=== PATIENT | male | born 1960 | race American Indian/Alaskan Native ===

== ENCOUNTER 2017-02-08 12:09 | Inpatient (IN) | payer MEDICAID ==
[2017-02-08 13:43] LABS: BASO % 0.4 % (0.0-2.0); EOS # 0.5 K/uL (0.0-0.7); EOS % 6.8 % (0.0-4.0); HEMATOCRIT 40.2 % (35.0-51.0); LYMPH % 24.6 % (20.0-40.0); MEAN CELL VOLUME 94.4 fL (80.0-94.0); MEAN CORPUSCULAR HEMOGLOBIN 30.8 pg (27.0-31.0); MEAN CORPUSCULAR HGB CONC 32.6 g/dL (33.0-37.0); MEAN PLATELET VOLUME 7.3 fL (7.2-11.7); MONO # 0.5 K/uL (0.0-0.8); MONO % 5.8 % (0.0-10.0); RED CELL DISTRIBUTION WIDTH 13.4 % (11.5-14.5); WHITE BLOOD COUNT 8.1 K/uL (4.8-10.8)
[2017-02-08 13:47] LABS: RBC URINE < 1 /hpf (0-3); URINE BILIRUBIN NEGATIVE (NEGATIVE); URINE BLOOD NEGATIVE (NEGATIVE); URINE COLOR Yellow (YELLOW); URINE GLUCOSE (UA) NORMAL (Normal); URINE KETONE NEGATIVE (NEGATIVE); URINE LEUKOCYTE ESTERASE NEG Leu/uL (Negative); URINE PROTEIN NEGATIVE (NEGATIVE); URINE UROBILINOGEN NORMAL mg/dL (0.2-1.0); WBC URINE 1 /hpf (0-5)
[2017-02-08 14:02] LABS: CHLORIDE 100 mmol/L (98-107); SODIUM 137 mmol/L (132-148)
[2017-02-08 14:03] LABS: POTASSIUM 4.6 mmol/L (3.6-5.2)
[2017-02-08 14:05] LABS: ALB/GLOB RATIO 1.4 (1.0-2.1); ALKALINE PHOSPHATASE 72 U/L (38-126); ALT/SGPT 21 U/L (21-72); AST/SGOT 20 U/L (17-59); BILIRUBIN,TOTAL < 0.1 mg/dL (0.2-1.3); BLOOD UREA NITROGEN 12 mg/dL (9-20); CALCIUM 8.9 mg/dl (8.6-10.4); CARBON DIOXIDE 26 mmol/L (22-30); GFR AFRICAN-AMERICAN > 60; GLUCOSE,RANDOM 121 mg/dL (75-110); TOTAL PROTEIN 6.2 g/dL (6.3-8.3)
[2017-02-08 14:06] LABS: ALCOHOL SERUM < 10 mg/dl (0-10)
--- NOTE | 2017-02-08 14:22 | C.PDOC ---
History Of Present Illness 56-year-old male, presents to the emergency department requesting detox from heroin. Patient states he is not using IV. Patients last use was yesterday. Denies any SI/HI. No other complaints at this time. Time Seen by Provider: 02/08/17 13:12 Chief Complaint (Nursing): Substance Abuse History Per: Patient History/Exam Limitations: no limitations Onset/Duration Of Symptoms: Days Current Symptoms Are (Timing): Still Present Past Medical History Reviewed: Historical Data, Nursing Documentation, Vital Signs Vital Signs: Last Vital Signs Temp 98 F 02/08/17 16:37 Pulse 62 02/08/17 16:37 Resp 18 02/08/17 16:37 BP 121/73 02/08/17 16:37 Pulse Ox 100 02/08/17 17:28 - Medical History PMH: Back Problems Denies: Diabetes, Hepatitis, HIV, HTN, Seizures, Sexually Transmitted Disease - [facility] Procedures DETOXIFICATION SERVICES FOR SUBSTANCE ABUSE TREATMENT (02/08/16) DRUG DETOXIFICATION (11/09/14) Family History: States: Unknown Family Hx - Social History Hx Tobacco Use: Yes Hx Alcohol Use: Yes Hx Substance Use: Yes (heroin) - Immunization History Hx Tetanus Toxoid Vaccination: No Hx Influenza Vaccination: No Hx Pneumococcal Vaccination: No Review Of Systems Except As Marked, All Systems Reviewed And Found Negative. Constitutional: Negative for: Fever, Chills Cardiovascular: Negative for: Chest Pain, Palpitations Respiratory: Negative for: Shortness of Breath Skin: Negative for: Rash Neurological: Negative for: Weakness, Numbness Psych: Negative for: Anxiety, Depression, Suicidal ideation Physical Exam - Physical Exam Appears: Non-toxic, No Acute Distress Skin: Warm, Dry, No Rash Head: Atraumatic, Normacephalic Eye(s): bilateral: Normal Inspection, EOMI Nose: Normal Oral Mucosa: Moist Lips: Normal Appearing Neck: Normal ROM Chest: Symmetrical Respiratory: No Accessory Muscle Use Gastrointestinal/Abdominal: Soft, No Tenderness Extremity: Normal ROM Neurological/Psych: Oriented x3 ED Course And Treatment - Laboratory Results Result Diagrams: 02/08/17 13:40 02/08/17 13:40 O2 Sat by Pulse Oximetry: 100 Progress Note: Case discussed w/ school social worker, who evaluated patient and states he will be admitted to Dr Navarro service for opiate dependance. Disposition - Disposition Disposition: HOSPITALIZED Disposition Time: 16:00 Condition: STABLE - Clinical Impression Clinical Impression: Opioid dependence - Scribe Statement The provider has reviewed the documentation as recorded by the Scribe Ladan Erickson All medical record entries made by the Radhaibe were at my direction and personally dictated by me. I have reviewed the chart and agree that the record accurately reflects my personal performance of the history, physical exam, medical decision making, and the department course for this patient. I have also personally directed, reviewed, and agree with the discharge instructions and disposition.
[2017-02-09] MEDS ORDERED: Buprenorphine Hydrochloride 2 mg SL ONE ×3 (07:00→08:25)
--- NOTE | 2017-02-09 14:08 | PCM.PSYCH ---
Initial Psychiatric Evaluation - Initial Psychiatric Evaluation Type of Admission: Voluntary Legal Status: Capacity Chief Complaint (in patient's own words): Heroin detox History of Present Illness and Precipitating Events: Pt. is a 56 y/o AA M, domiciled and unemployed on disability, w/ PMHx of opiate abuse disorder. Pt. reports that he predominantly uses heroin, although, he admits to also abusing xanax, and using crack cocaine. Pt. states that his father was an alcoholic; Pt. alludes to psychiatric hx on his mothers side as well. Pt. was last admitted admitted a year ago for detox. Upon discharge, Pt. was referred to [facility], but there was a waitlist. Pt. states that he stayed clean for two months, but relapsed before space opened up for him at [facility]. Pt. is now concerned that his current living situation would be a difficult environment in which to remain sober due to the ubiquity of drugs in his apartment complex. Pt. is interested in seeking treatment in a long-term rehab facility upon discharge, and he is also interested in looking for sober- living homes. Current Medications: Active Medications Generic Name Dose Route Start Last Admin Trade Name Freq PRN Reason Stop Dose Admin Al Hydrox/Mg Hydrox/Simethicone 30 ml 02/08/17 15:35 Maalox 30 Ml PO TID PRN Indigestion / Heartburn Buprenorphine HCl 8 mg 02/10/17 10:00 Subutex SL 02/14/17 09:59 .TAPER MONTY Taper Clonidine HCl 0.1 mg 02/08/17 15:35 Catapres PO Q8 PRN COWS Score More or Equal to 5 Gabapentin 300 mg 02/08/17 18:00 02/09/17 13:18 Neurontin PO 300 mg TID MONTY Administration Hydroxyzine HCl 50 mg 02/08/17 15:35 02/08/17 17:38 Atarax PO 50 mg Q6H PRN Administration Anxiety Ibuprofen 600 mg 02/08/17 15:35 Motrin Tab PO Q6H PRN Pain, moderate (4-7) Loperamide HCl 2 mg 02/08/17 15:35 Imodium PO Q8 PRN Diarrhea Nicotine 1 patch 02/09/17 10:00 02/09/17 09:15 Nicoderm Cq TD 1 patch DAILY MONTY Administration Ondansetron HCl 4 mg 02/08/17 15:35 Zofran Tab PO Q8 PRN Nausea/Vomiting Trazodone HCl 100 mg 02/08/17 22:00 Desyrel PO HS PRN Insomnia Past Psychiatric History - Past Psychiatric History Previous Treatment History: Inpatient Prior Psychiatric Treatment: Heroin detox At [facility]: [facility] Date: 02/13/16 Duration: 7 days Pertinent Medical Hx (Current Medical&Sleep Prob, Allergies): Allergies Allergy/AdvReac Type Severity Reaction Status Date / Time FISH Allergy Intermediate Verified 02/08/17 12:35 nut - unspecified [nut] Allergy Intermediate Verified 02/08/17 12:35 Gabapentin [Neurontin] 300 mg PO TID #90 cap 02/13/16 hydrOXYzine HCl [Atarax] 25 mg PO BID PRN #60 tab 02/13/16 traZODone [Desyrel] 100 mg PO HS #30 tab 02/13/16 Review of Systems - Psychiatric Psychiatric: absent: Auditory Hallucinations, Visual Hallucinations Mental Status Examination - Personal Presentation Personal Presentation: Looks stated age - Affect Affect: Constricted - Motor Activity Motor Activity: Calm - Reliability in Providing Information Reliability in Providing Information: Good - Speech Speech: Organized, Relevant - Mood Mood: Depressed - Formal Thought Process Formal Thought Process: No Impairment - Obsessions/Compulsions Obsessions: No Compulsions: No - Cognitive Functions Orientation: Person, Place, Situation Attention/Concentration: Attentive Judgement: Intact, as evidence by: Insight regarding need for hospitalization Memory: Recent intact, as evidence by: Ability to recall events of the day, Remote intact, as evidenced by: Abilit to recall sig. life events DSM 5 DX - DSM 5 DSM 5 Diagnosis: Opioid withdrawal Opioid use disorder - Recommended/Plan of Treatment Treatment Recommendations and Plan of Treatment: Opiod withdrawal -subutex detox -prn meds Opioid use disorder -[place] for abstinence -Individual therapy, group therapy -Supportive therapy
[2017-02-10] MEDS: Buprenorphine Hydrochloride 2 mg SL SCH (09:51)
--- NOTE | 2017-02-10 23:00 | PCM.PYCHPN ---
Psychiatric Progress Note - Psychiatric Progress Note Patient seen today, length of contact: 17 min Patient Chief Complaint: "Sleep was so so" Problems Identified/Issues Discussed: The pt is seen, chart reviewed, case discussed with staff. The pt is compliant with medications and reports no side-effects. Symptoms of withdrawal are improving but needs more time to stabilize. After care discussed, support and psychoeducation given. he will go to [facility]. Medication Change: Yes (detox changes daily) Medical Record Reviewed: Yes Mental Status Examination - Cognitive Function Orientation: Person, Place, Situation, Time Memory: Intact Attention: WNL Concentration: WNL Association: WNL Fund of Knowledge: WNL - Mood Mood: Depressed - Affect Affect: Constricted - Speech Speech: Appropriate - Formal Thought Process Formal Thought Process: No Impairment - Suicidal Ideation Suicidal Ideation: No - Homicidal Ideation Homicidal Ideation: No Goal/Treatment Plan - Goal/Treatment Plan Need for Continued Stay: Discharge may exacerbated symptoms, Severe functional impairment Progress Toward Problem(s) and Goals/Treatment Plan: Opiod withdrawal -subutex detox -prn meds Opioid use disorder -[place] for abstinence -Individual therapy, group therapy -Supportive therapy Estimated Date of D/C: 02/13/17
[2017-02-11] MEDS: Buprenorphine Hydrochloride 2 mg SL SCH (09:44)
[2017-02-11] MEDS: Aluminum Hydroxide/Magnesium Hydroxide Susp (30 mL) PO PRN (21:54)
--- NOTE | 2017-02-11 22:28 | PCM.PYCHPN ---
Psychiatric Progress Note - Psychiatric Progress Note Patient seen today, length of contact: 16 min Patient Chief Complaint: "A little better" Problems Identified/Issues Discussed: The pt is seen, chart reviewed, case discussed with staff. The pt is compliant with medications and reports no side-effects. Symptoms are still improving but needs more time to stabilize. No breakthru sxs reported. Slept better After care discussed, support and psychoeducation given. No chg: [facility] Medication Change: Yes (detox changes daily) Medical Record Reviewed: Yes Mental Status Examination - Cognitive Function Orientation: Person, Place, Situation Memory: Intact Attention: WNL Concentration: WNL Association: WN Fund of Knowledge: WN - Mood Mood: Depressed - Affect Affect: Constricted - Speech Speech: Appropriate - Formal Thought Process Formal Thought Process: No Impairment - Suicidal Ideation Suicidal Ideation: No - Homicidal Ideation Homicidal Ideation: No Goal/Treatment Plan - Goal/Treatment Plan Need for Continued Stay: Discharge may exacerbated symptoms, Severe functional impairment Progress Toward Problem(s) and Goals/Treatment Plan: Opiod withdrawal -subutex detox -prn meds Opioid use disorder -[place] for abstinence -Individual therapy, group therapy -Supportive therapy Estimated Date of D/C: 02/13/17
[2017-02-12] MEDS: Buprenorphine Hydrochloride 2 mg SL SCH (10:05)
--- NOTE | 2017-02-12 14:19 | PCM.PYCHPN ---
Psychiatric Progress Note - Psychiatric Progress Note Patient seen today, length of contact: 15 min Patient Chief Complaint: "OK today" Problems Identified/Issues Discussed: The pt is seen, chart reviewed, case discussed with staff. The pt is compliant with medications and reports no side-effects. Detox is improving without breakthru sxs. No cravings but he will do suboxone at [facility]. Support and psychoeducation given. WA used Medication Change: Yes (detox changes daily) Medical Record Reviewed: Yes Mental Status Examination - Cognitive Function Orientation: Person, Place, Situation Memory: Intact Attention: WNL Concentration: WNL Association: WNL Fund of Knowledge: WNL - Mood Mood: Depressed - Affect Affect: Constricted - Speech Speech: Appropriate - Formal Thought Process Formal Thought Process: No Impairment - Suicidal Ideation Suicidal Ideation: No - Homicidal Ideation Homicidal Ideation: No Goal/Treatment Plan - Goal/Treatment Plan Need for Continued Stay: Discharge may exacerbated symptoms, Severe functional impairment Progress Toward Problem(s) and Goals/Treatment Plan: Opiod withdrawal -subutex detox, ending soon -prn meds Opioid use disorder -[place] for abstinence -Individual therapy, group therapy -Supportive therapy -MAT discussed Estimated Date of D/C: 02/13/17
[2017-02-12] MEDS: Aluminum Hydroxide/Magnesium Hydroxide Susp (30 mL) PO PRN (20:52)
[2017-02-13 05:02] VITALS: RESP 18; TEMP 97.8
--- NOTE | 2017-02-13 08:59 | PCM.PYCHDC ---
Mental Status Examination - Mental Status Examination Orientation: Person, Place, Situation, Time Memory: Intact Mood: Anxious Affect: Constricted Speech: Appropriate Attention: WNL Concentration: WNL Association: WNL Fund of Knowledge: WNL Formal Thought Process: No Impairment Suicidal Ideation: No Current Homicidal Ideation?: No Discharge Summary - Discharge Note Reason for Hospitalization: heroin detox Consultations:: List each consultation separately and include: 1. Reason for request. 2. Findings. 3. Follow-up Summary of Hospital Course include:: 1. Description of specific treatment plan utilized for patients during their course of treatmen. 2. Summarize the time- course for resolution of acute symptoms and/or regressed behaviors. 3. Describe issues identified and worked on during hospitalization. 4. Describe medication utilized. 5. Describe medical problems identified and treated. 6. Reassessment of suicide risk Summary of Hospital Course: The pt is seen, chart reviewed and case discussed On admission: Pt. is a 56 y/o AA M, domiciled and unemployed on disability, w/ PMHx of opiate use disorder. Pt. reports that he predominantly uses heroin, although, he admits to also abusing xanax, and using crack cocaine. Pt. states that his father was an alcoholic; Pt. alludes to psychiatric hx on his mothers side as well. Pt. was last admitted admitted a year ago for detox. Upon discharge, Pt. was referred to [facility], but there was a waitlist. Pt. states that he stayed clean for two months, but relapsed before space opened up for him at [facility]. Pt. is now concerned that his current living situation would be a difficult environment in which to remain sober due to the ubiquity of drugs in his apartment complex. Pt. is interested in seeking treatment in a long-term rehab facility upon discharge, and he is also interested in looking for sober- living homes. Hospital course: The pt was admitted and started on treatment with psychotherapy, support, psychoeducation and medications. NE and CBT used. The pt attended groups and activities, as well as milieu therapy. All the risks and benefits of medications are discussed and the patient understood and agreed. After care discussed with the patient. Agreed to go to [facility] and also do subox. He was cooperative, motivated and pleasant - Final Diagnosis (DSM 5) Condition upon Discharge: STABLE DSM 5: Opioid withdrawal Opioid use d/o - severe Disposition: HOME/ ROUTINE Follow-up Treatment Plan: Attend [facility] on 02/15/17 Consider MAT Continue below medications after discharge. Use relapse prevention skills Return to ER or call 911 if suicidal, homicidal or symptoms relapse. Stay away from stress, alcohol and drugs. Prescriptions/Medication Reconciliation: hydrOXYzine HCl [Atarax] 50 mg PO BID PRN #60 tab PRN Reason: Anxiety traZODone [Desyrel] 100 mg PO HS PRN #30 tab PRN Reason: Insomnia Gabapentin [Neurontin] 300 mg PO TID #90 cap
[2017-02-13 09:01] VITALS: BP 128/83; PULSE 81; O2SAT 96
[2017-02-13] MEDS: Buprenorphine Hydrochloride 2 mg SL SCH (09:28)
== END 2017-02-13 12:15 | disposition home or self-care (01) | DRG 745 ==
LOC: C.ER 12:09 → C.9E 14:57 → C.7D 15:41
PROVIDERS: ADMIT Psychiatry & Neurology Psychiatry; ATTEND Psychiatry & Neurology Psychiatry
PROC: HZ2ZZZZ Detoxification Services for Substance Abuse Treatment (ICD-10-PCS; principal; 2017-02-08)
PROC: GZHZZZZ Group Psychotherapy (ICD-10-PCS; 2017-02-08)
PROC: GZ56ZZZ Individual Psychotherapy, Supportive (ICD-10-PCS; 2017-02-08)
DX: F11.23 Opioid dependence with withdrawal (principal); F19.10 Other psychoactive substance abuse, uncomplicated; Z87.891 Personal history of nicotine dependence; G47.00 Insomnia, unspecified

== ENCOUNTER 2017-10-26 16:02 | Inpatient (IN) | payer MEDICARE, MEDICAID ==
[2017-10-26 16:30] VITALS: BMI 25.1
[2017-10-26 17:53] LABS: BASO % 0.5 % (0.0-2.0); EOS # 0.4 K/uL (0.0-0.7); HEMOGLOBIN 14.1 g/dL (12.0-18.0); LYMPH % 24.3 % (20.0-40.0); MEAN CELL VOLUME 94.5 fL (80.0-94.0); MEAN CORPUSCULAR HEMOGLOBIN 31.4 pg (27.0-31.0); MEAN CORPUSCULAR HGB CONC 33.3 g/dL (33.0-37.0); MEAN PLATELET VOLUME 7.1 fL (7.2-11.7); MONO # 0.7 K/uL (0.0-0.8); MONO % 8.9 % (0.0-10.0); NEUT % 61.3 % (50.0-75.0); NRBC % 0.1 % (0.0-2.0); RBC 4.49 Mil/uL (4.40-5.90); RED CELL DISTRIBUTION WIDTH 14.1 % (11.5-14.5); WHITE BLOOD COUNT 8.1 K/uL (4.8-10.8)
[2017-10-26 18:11] LABS: ALB/GLOB RATIO 1.3 (1.0-2.1); ALT/SGPT 21 U/L (21-72); AST/SGOT 23 U/L (17-59); BLOOD UREA NITROGEN 10 mg/dL (9-20); CALCIUM 8.8 mg/dl (8.6-10.4); GFR AFRICAN-AMERICAN > 60; GFR NON-AFRICAN AMERICAN > 60
--- NOTE | 2017-10-26 18:34 | C.PDOC ---
History Of Present Illness 57 year old male, with no significant PMHx, presents to ED requesting detox from heroin and Xanax. Last use of Xanax and heroin both today. Pt reports snorting 5-6 bags of heroin today. Denies SI, HI, or any active physical complaints at this time. Time Seen by Provider: 10/26/17 18:17 Chief Complaint (Nursing): Substance Abuse History Per: Patient History/Exam Limitations: no limitations Onset/Duration Of Symptoms: Days Current Symptoms Are (Timing): Still Present Suicide/Self Injury Attempted (Context): None Severity: None Pain Scale Rating Of: 0 Associated Symptoms: denies: Suicidal Thoughts, Suicidal Plan Involuntary Hold By: None Recent travel outside of the [place]: No Additional History Per: Patient Past Medical History Reviewed: Historical Data, Nursing Documentation, Vital Signs Vital Signs: Last Vital Signs Temp 99.1 F 10/26/17 16:30 Pulse 87 10/26/17 16:30 Resp 18 10/26/17 16:30 BP 125/74 10/26/17 16:30 Pulse Ox 95 10/26/17 18:39 - Medical History PMH: Back Problems Denies: Diabetes, Hepatitis, HIV, HTN, Seizures, Sexually Transmitted Disease - [facility] Procedures DETOXIFICATION SERVICES FOR SUBSTANCE ABUSE TREATMENT (02/08/17) DRUG DETOXIFICATION (11/09/14) GROUP PSYCHOTHERAPY (02/08/17) INDIVIDUAL PSYCHOTHERAPY, SUPPORTIVE (02/08/17) Family History: States: Stroke - Social History Hx Tobacco Use: Yes Hx Alcohol Use: Yes Hx Substance Use: Yes (heroin) - Immunization History Hx Tetanus Toxoid Vaccination: No Hx Influenza Vaccination: No Hx Pneumococcal Vaccination: No Review Of Systems Except As Marked, All Systems Reviewed And Found Negative. Constitutional: Negative for: Fever, Chills Cardiovascular: Negative for: Chest Pain, Palpitations Respiratory: Negative for: Cough, Shortness of Breath Gastrointestinal: Negative for: Nausea, Vomiting, Abdominal Pain Neurological: Negative for: Headache, Dizziness Psych: Negative for: Suicidal ideation Physical Exam - Physical Exam Appears: Non-toxic, No Acute Distress, Other (calm, cooperative) Skin: Warm, Dry, Other (chronic darkening of b/l lower extremity ) Head: Atraumatic, Normacephalic Eye(s): bilateral: Abnormal Pupil (constricted) Oral Mucosa: Moist Neck: Normal ROM, Supple Chest: Symmetrical Cardiovascular: Rhythm Regular, No Murmur Respiratory: No Accessory Muscle Use, No Rales, No Rhonchi, No Wheezing Gastrointestinal/Abdominal: Soft, No Tenderness Extremity: Normal ROM, No Pedal Edema Neurological/Psych: Oriented x3, Normal Speech ED Course And Treatment - Laboratory Results Result Diagrams: 10/26/17 17:47 10/26/17 17:47 Lab Interpretation: Abnormal (tox + cocaine, opiates, benzo's) O2 Sat by Pulse Oximetry: 95 (RA) Pulse Ox Interpretation: Normal Reevaluation Time: 19:52 Reassessment Condition: Unchanged - Physician Consult Information Outcome Of Conversation: 194: ok to detox Medical Decision Making Medical Decision Making: Blood work, UA ordered and reviewed. polysubstance abuse- prescreened for detox. Disposition Doctor Will See Patient In The: Hospital Counseled Patient/Family Regarding: Studies Performed, Diagnosis - Disposition Disposition: HOSPITALIZED Disposition Time: 19:53 Condition: GOOD Forms: [facility] ([place]) - Clinical Impression Clinical Impression: Polysubstance (including opioids) dependence with physiol dependence - Scribe Statement The provider has reviewed the documentation as recorded by the Scribe Seven [place] All medical record entries made by the Scribe were at my direction and personally dictated by me. I have reviewed the chart and agree that the record accurately reflects my personal performance of the history, physical exam, medical decision making, and the department course for this patient. I have also personally directed, reviewed, and agree with the discharge instructions and disposition.
[2017-10-26 18:37] LABS: SQUAMOUS EPITHIAL 1 /hpf (0-5); URINE BILIRUBIN NEGATIVE (NEGATIVE); URINE BLOOD NEGATIVE (NEGATIVE); URINE CALCIUM OXALATE CRYSTALS RARE /hpf (<OCC); URINE CLARITY Hazy (Clear); URINE COLOR Yellow (YELLOW); URINE GLUCOSE (UA) NORMAL (Normal); URINE LEUKOCYTE ESTERASE NEG Leu/uL (Negative); URINE NITRATE NEGATIVE (NEGATIVE); URINE PROTEIN NEGATIVE (NEGATIVE)
[2017-10-26 18:42] LABS: BARBITURATES, UR NEGATIVE (NEGATIVE); BENZODIAZEPINES, UR POSITIVE (NEGATIVE); OPIATES, UR POSITIVE (NEGATIVE); PHENCYCLIDINE, UR NEGATIVE (NEGATIVE)
--- NOTE | 2017-10-26 20:39 | PCM.BM ---
<Cydney Crabtree - Last Filed: 10/26/17 20:37> Treatment Plan Problems - Problems identified on initial assessmt Potential for benzo withdrawal Date Initiated: 10/26/17 Time Initiated: 20:38 Assessment reference: NA Status: Active Priority: 1 Potential for opiate withdrawal Date Initiated: 10/26/17 Time Initiated: 20:38 Assessment reference: NA Status: Active Priority: 2 Treatment assets and liabiliti Patient Assests: cooperative, ADL independent, negotiates basic needs, cognitively intact Patient Liabilities: substance abuse (Benzo, Opiates) - Milieu Protocol Maintain good personal hygiene: daily Encourage regular showers, daily Remind patient to perform daily oral care, daily Assist patient to perform ADL's Conduct patient checks and document Observation sheet: Q15 minutes Maintain personal safety: every shift Educate patient to report safety concerns to staff, every shift Monitor environment for contraband/sharps Medication safety: Monitor for expected outcome, potential side effects: every shift, Assess barriers to learning: every shift, Assess readiness for medication education: every shift <Yara Short - Last Filed: 10/27/17 13:57> Family Contact Family involvement: Patient does not wish Family/SO involvement - Goals for Treatment Patient goals for treatment: COMPLETE DETOX AND APPLY FOR LONG-TERM REHAB. Discharge/Continuing Care - Education Needs Education Needs: Patient Medication, Patient Diagnosis/Disease Process, Patient Coping Skills, Patient Anger Management skills, Patient Placement options, Patient Community resources - Discharge Discharge Criteria: No longer exhibiting s/s of withdrawal, Reduction of target symptoms Discharge to:: Substance Abuse Rehab - Treatment Team Participation Patient/Family/SO Statement: 10/27/17 13:57 "I WANNA GO TO [employer] [facility]..."
[2017-10-26] MEDS ORDERED: Aluminum Hydroxide/Magnesium Hydroxide Susp (30 mL) PO PRN (21:53)
[2017-10-27] MEDS ORDERED: Benzocaine/Menthol (Cepacol) Lozenge PO PRN (11:31)
--- NOTE | 2017-10-27 14:36 | PCM.PSYCH ---
Initial Psychiatric Evaluation - Initial Psychiatric Evaluation Type of Admission: Voluntary Legal Status: Capacity Chief Complaint (in patient's own words): "I want to stay clean" History of Present Illness and Precipitating Events: This 57-year-old single -[place] male who was admitted to the hospital for the detox of heroin and Xanax. Patient reported he used 5-6 bags of heroine on the daily basis for the last 20 years intranasally patient reported he had 2 detox in the past. Last detox was 2 years ago at the [facility]. Patient stated the longest period of sobriety is only 7 months. Patient stated he wanted to stay clean and sober and a one to discharge to inpatient rehabilitation after the discharge. Patient reported withdrawal symptoms of heroine including nasal condition Morrison eyes hot and cold sweats nausea and stomach cramps muscle aches etc. Patient reported he is taking Xanax 2 mg tablet 3 times a day he started buying and taking the tablet one year ago last use was yesterday patient reported some withdrawal symptoms from the benzos. CAGE questionnaire was positive. Patient reported he is using cocaine on and off for the last 20 years. Last use was yesterday. Patient denied any history of incarceration probation parole, DUI and DWI. Patient reported he is smoking half pack of cigarettes on the daily basis. He reported craving and asked the nicotine patch. Patient denied depressive manic and anxiety symptoms. Additionally he denied auditory visual hallucination including the perceptual disturbances. Past medical history: Denied Family history patient stated both parents were alcoholic Current Medications: Active Medications Generic Name Dose Route Start Last Admin Trade Name Freq PRN Reason Stop Dose Admin Al Hydrox/Mg Hydrox/Simethicone 30 ml 10/26/17 21:53 10/26/17 22:04 Maalox 30 Ml PO 30 ml Q8 PRN Administration Indigestion / Heartburn Benzocaine/Menthol 1 anne 10/27/17 11:31 Cepacol Sore Throat PO QID PRN Sore Throat Clonidine HCl 0.1 mg 10/26/17 21:05 Catapres PO Q8 PRN opiate withdrawal Gabapentin 100 mg 10/27/17 14:00 10/27/17 13:12 Neurontin PO 100 mg TID MONTY Administration Hydroxyzine HCl 25 mg 10/26/17 21:06 10/26/17 21:41 Atarax PO 25 mg Q8 PRN Administration Anxiety Ibuprofen 400 mg 10/27/17 11:33 Motrin Tab PO Q6H PRN Pain, moderate (4-7) Loperamide HCl 2 mg 10/27/17 11:31 Imodium PO Q8 PRN Diarrhea Lorazepam 1 mg 10/26/17 21:30 Ativan PO Q6 PRN benzo withdrawal Lorazepam 2 mg 10/27/17 12:30 Ativan PO 11/01/17 12:29 Q6 MONTY Taper Nicotine 1 patch 10/27/17 13:00 10/27/17 13:29 Nicoderm Cq TD 1 patch DAILY MONTY Administration Ondansetron HCl 4 mg 10/27/17 11:31 Zofran Tab PO Q8 PRN Nausea/Vomiting Trazodone HCl 50 mg 10/26/17 21:06 10/26/17 21:42 Desyrel PO 50 mg HS PRN Administration Insomnia NKDA Past Psychiatric History - Past Psychiatric History Previous Treatment History: Inpatient Prior Psychiatric Treatment: had 2 detox in the past [facility]: [facility] was in [facility] History of Abuse: Denied History of ETOH/Drug Use: Please see HPI History of Family Illness: Both parent were alcoholic Pertinent Medical Hx (Current Medical&Sleep Prob, Allergies): Allergies Allergy/AdvReac Type Severity Reaction Status Date / Time FISH Allergy Intermediate Verified 10/26/17 16:30 nut - unspecified [nut] Allergy Intermediate Verified 10/26/17 16:30 RX: No Known Home Med 10/26/17 Review of Systems - Review of Systems Systems not reviewed;Unavailable: Other (cooperative, anxious) All systems: reviewed and no additional remarkable complaints except (please see HPI) - Constitutional Constitutional: Chills, Sweats, Weakness, Malaise - EENT Eyes: Discharge Ears: UNREMARKABLE Nose/Mouth/Throat: Other (yawning) - Cardiovascular Additional comments: heart racing - Gastrointestinal Gastrointestinal: Diarrhea - Genitourinary Genitourinary: UNREMARKABLE - Reproductive: Male Reproductive:Male: UNREMARKABLE - Musculoskeletal Musculoskeletal: Myalgias - Integumentary Integumentary: UNREMARKABLE - Neurological Neurological: UNREMARKABLE - Psychiatric Psychiatric: As Per HPI Mental Status Examination - Personal Presentation Personal Presentation: Looks stated age Additional comments: Calm and cooperative but appeared anxious - Affect Affect: Constricted - Motor Activity Motor Activity: Calm - Reliability in Providing Information Reliability in Providing Information: Good - Speech Speech: Organized - Formal Thought Process Formal Thought Process: No Impairment - Hallucinations/Delusions Hallucinations: Other (Denied) Delusions: Other (Denied) - Obsessions/Compulsions Obsessions: No Compulsions: No - Cognitive Functions Orientation: Person, Place, Situation, Time Sensorium: Alert Attention/Concentration: Attentive Abstract Thinking: As evidence by abstract perception of proverbs Judgement: Intact, as evidence by: Good judgement, Intact, as evidence by: Insight regarding need for hospitalization Memory: Recent intact, as evidence by: Ability to recall events of the day - Risk Risk: Withdrawal, Falls, Diminished functioning - Strength & Assets Inventory Strength & Assets Inventory: Family support, Cooperative - Limitations Limitations: Other (Chronic substance abuse) DSM 5 DX - DSM 5 DSM 5 Diagnosis: 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, dependence, withdrawal symptoms Hypnotic/sedated use disorder severe dependence, withdrawal symptoms Cocaine use disorder, moderate Tobacco use disorder, moderate - Recommended/Plan of Treatment Treatment Recommendations and Plan of Treatment: Methadone and ativan detox Gabapentin for augmentation As needed meds and vitamins Attend groups and activities [place] for abstinence and CBT for relapse prevention Support and psychoeducation Consider and encourage MAT~ Refer to after care 33 min Projected ELOS: 5 days Prognosis: Good with the medication and completion of detox treatment Discharge Plan and Discharge Criteria: As per floor clinical social work aide protocol - Smoking Cessation Smoking Cessation Initiated: Yes
[2017-10-28] MEDS: Multiple Vitamins Tab PO SCH (14:06)
--- NOTE | 2017-10-28 14:27 | PCM.PYCHPN ---
Psychiatric Progress Note - Psychiatric Progress Note Patient seen today, length of contact: 15 minutes Patient Chief Complaint: "I'm feeling better." Problems Identified/Issues Discussed: The pt is seen and evaluated. chart reviewed, case discussed with staff. Patient reported methadone help him and heroine withdrawal symptoms. The pt is compliant with medications and reports no side-effects. Symptoms are improving but needs more time to stabilize. After care discussed, support and psychoeducation given. Medication Change: Yes (Methadone taper, Ativan taper) Medical Record Reviewed: Yes Consults ordered or reviewed: No Mental Status Examination - Cognitive Function Orientation: Person, Place, Situation, Time Memory: Intact Attention: WNL Concentration: WNL Association: WN Fund of Knowledge: [facility] Decription of patient's judgement and insights: Fair/fair Addtional comments: He is cooperative and answers the questions appropriately - Mood Mood: Neutral - Affect Affect: Constricted - Speech Speech: Appropriate - Formal Thought Process Formal Thought Process: No Impairment Psychotic Thoughts and Behaviors: Denied - Suicidal Ideation Suicidal Ideation: No - Homicidal Ideation Homicidal Ideation: No Plan: No intent or plan, no access to the [facility] Goal/Treatment Plan - Goal/Treatment Plan Need for Continued Stay: Discharge may exacerbated symptoms, Severe functional impairment Progress Toward Problem(s) and Goals/Treatment Plan: Continue Methadone and ativan detox Gabapentin for augmentation As needed meds and vitamins Attend groups and activities [place] for abstinence and CBT for relapse prevention Support and psychoeducation Consider and encourage MAT~ Refer to after care Estimated Date of D/C: 10/31/17 - Smoking Cessation Smoking Cessation Initiated: Yes
[2017-10-29] MEDS: Multiple Vitamins Tab PO SCH (09:08)
--- NOTE | 2017-10-29 13:09 | PCM.PYCHPN ---
Psychiatric Progress Note - Psychiatric Progress Note Patient seen today, length of contact: 15 minutes Patient Chief Complaint: "My withdrawal symptoms are better." Problems Identified/Issues Discussed: The pt is seen and evaluated. chart reviewed, case discussed with staff. Patient reported methadone is helping him in heroine withdrawal symptoms. The pt is compliant with medications and reports no side-effects. Pt stated that he wants to be discharge from the hospital on Wednesday. Symptoms are improving but needs more time to stabilize. After care discussed, support and psychoeducation given. DSM 5 Symptoms Update: Opioid use disorder, severe, dependence, withdrawal symptoms, Hypnotic, sedative/ anxiolytic use disorder, dependence, with withdrawal symptoms. cocaine use d/o Medication Change: Yes (Methadone taper, Ativan taper) Medical Record Reviewed: Yes Mental Status Examination - Cognitive Function Orientation: Person, Place, Situation, Time Memory: Intact Attention: WNL Concentration: WNL Association: WN Fund of Knowledge: [facility] Decription of patient's judgement and insights: Fair/fair Pt is calm and cooperative - Mood Mood: Neutral - Affect Affect: Constricted - Speech Speech: Appropriate - Formal Thought Process Formal Thought Process: No Impairment Psychotic Thoughts and Behaviors: Denied - Suicidal Ideation Suicidal Ideation: No Plan: denied - Homicidal Ideation Homicidal Ideation: No Plan: denied Goal/Treatment Plan - Goal/Treatment Plan Need for Continued Stay: Discharge may exacerbated symptoms, Severe functional impairment Progress Toward Problem(s) and Goals/Treatment Plan: Continue Methadone and ativan detox Gabapentin for augmentation As needed meds and vitamins Attend groups and activities [place] for abstinence and CBT for relapse prevention Support and psychoeducation Consider and encourage MAT~ Refer to after care Estimated Date of D/C: 10/31/17 - Smoking Cessation Smoking Cessation Initiated: Yes
[2017-10-30] MEDS: guaiFENesin 100 mg/5 ml Syrup UD PO PRN (06:54)
[2017-10-30] MEDS: Multiple Vitamins Tab PO SCH (09:14)
[2017-10-30] MEDS ORDERED: Magnesium Hydroxide Susp 30 ml UD PO ONE (16:24)
[2017-10-30] MEDS ORDERED: Magnesium Hydroxide Susp 30 ml UD PO PRN (17:49)
[2017-10-30 21:47] VITALS: RESP 20
[2017-10-31] MEDS: Multiple Vitamins Tab PO SCH (09:43)
[2017-10-31] MEDS: guaiFENesin 100 mg/5 ml Syrup UD PO PRN (10:17)
[2017-10-31 11:38] VITALS: BP 145/85; PULSE 98; TEMP 98.5; O2SAT 98
--- NOTE | 2017-11-01 09:08 | PCM.PYCHPN ---
Psychiatric Progress Note - Psychiatric Progress Note Patient seen today, length of contact: 15 minutes Patient Chief Complaint: [place] AND I LEAVE [facility] Problems Identified/Issues Discussed: POST ACUTE WITHDRAWAL SYNDROME. HAVING A NEW LIFE GEOGRAPHIC CURE Medical Problems: NOTHING ACUTE Diagnostic Results: REVIEWED DSM 5 Symptoms Update: ANXIETY Medication Change: Yes (Methadone taper, Ativan taper) Medical Record Reviewed: Yes Mental Status Examination - Cognitive Function Orientation: Person, Place, Situation, Time Memory: Intact Attention: WNL Concentration: WNL Association: WNL Fund of Knowledge: WNL - Mood Mood: Neutral - Affect Affect: Broad, Constricted - Speech Speech: Appropriate - Formal Thought Process Formal Thought Process: No Impairment - Suicidal Ideation Suicidal Ideation: No - Homicidal Ideation Homicidal Ideation: No Goal/Treatment Plan - Goal/Treatment Plan Need for Continued Stay: Discharge may exacerbated symptoms, Severe functional impairment Progress Toward Problem(s) and Goals/Treatment Plan: OPIOID WITHDRAWAL METHADONE TAPER OPIOID USE DISORDER GROUP [facility] [place] CBT SUPPORTIVE PSYCHOTHERAPY Estimated Date of D/C: 10/31/17 - Smoking Cessation Smoking Cessation Initiated: Yes
== END 2017-10-31 12:00 | disposition home or self-care (01) | DRG 895 ==
LOC: C.ER 16:02 → C.7D 19:53
PROC: HZ2ZZZZ Detoxification Services for Substance Abuse Treatment (ICD-10-PCS; principal; 2017-10-26)
PROC: HZ59ZZZ Individual Psychotherapy for Substance Abuse Treatment, Supportive (ICD-10-PCS; 2017-10-26)
PROC: HZ46ZZZ Group Counseling for Substance Abuse Treatment, Psychoeducation (ICD-10-PCS; 2017-10-26)
DX: F11.23 Opioid dependence with withdrawal (principal); F13.239 Sedative, hypnotic or anxiolytic dependence with withdrawal, unspecified; F14.10 Cocaine abuse, uncomplicated; F17.210 Nicotine dependence, cigarettes, uncomplicated; F41.9 Anxiety disorder, unspecified

== ENCOUNTER 2018-09-21 20:37 | Inpatient (IN) | payer MEDICARE, MEDICAID ==
[2018-09-21 20:37] VITALS: BMI 25.1
[2018-09-21 21:11] LABS: BASO # 0.1 K/uL (0.0-0.2); BASO % 0.6 % (0.0-2.0); EOS # 0.2 K/uL (0.0-0.7); EOS % 1.7 % (0.0-4.0); HEMOGLOBIN 15.7 g/dL (12.0-18.0); LYMPH # 2.3 K/uL (1.0-4.3); LYMPH % 19.2 % (20.0-40.0); MEAN CELL VOLUME 93.4 fL (80.0-94.0); MEAN CORPUSCULAR HEMOGLOBIN 31.8 pg (27.0-31.0); MEAN CORPUSCULAR HGB CONC 34.1 g/dL (33.0-37.0); MEAN PLATELET VOLUME 7.6 fL (7.2-11.7); MONO # 0.8 K/uL (0.0-0.8); MONO % 6.8 % (0.0-10.0); NEUT # 8.8 K/uL (1.8-7.0); NEUT % 71.7 % (50.0-75.0); NRBC % 0.1 % (0.0-2.0); RBC 4.93 Mil/uL (4.40-5.90); RED CELL DISTRIBUTION WIDTH 13.8 % (11.5-14.5); WHITE BLOOD COUNT 12.2 K/uL (4.8-10.8)
[2018-09-21 21:14] LABS: SQUAMOUS EPITHIAL < 1 /hpf (0-5); URINE BACTERIA RARE (<OCC); URINE BILIRUBIN NEGATIVE (NEGATIVE); URINE BLOOD NEGATIVE (NEGATIVE); URINE CALCIUM OXALATE CRYSTALS OCC /hpf (<OCC); URINE CLARITY Clear (Clear); URINE COLOR Amber (YELLOW); URINE GLUCOSE (UA) NORMAL (Normal); URINE LEUKOCYTE ESTERASE NEG Leu/uL (Negative); URINE PROTEIN NEGATIVE (NEGATIVE)
--- NOTE | 2018-09-21 21:16 | C.PDOC ---
History Of Present Illness 58 year old male presents to the ED requesting detox after cocaine, heroin and marijuana use. Patient states his last use was one hour prior to arrival. Patient states he last underwent detox in January, but then relapsed in April. Gina ent denies suicidal/homicidal ideation. Time Seen by Provider: 09/21/18 20:53 Chief Complaint (Nursing): Substance Abuse History Per: Patient History/Exam Limitations: no limitations Onset/Duration Of Symptoms: Hrs Current Symptoms Are (Timing): Still Present Suicide/Self Injury Attempted (Context): None Modifying Factor(s): Marijuana, Cocaine, Other (heroin) Associated Symptoms: denies: Suicidal Thoughts, Suicidal Plan Involuntary Hold By: None Recent travel outside of the [place]: No Additional History Per: Patient Past Medical History Reviewed: Historical Data, Nursing Documentation, Vital Signs Vital Signs: Last Vital Signs Temp 97.8 F 09/21/18 20:42 Pulse 112 H 09/21/18 20:42 Resp 20 09/21/18 20:42 BP 145/83 09/21/18 20:42 Pulse Ox 100 09/21/18 20:42 - Medical History PMH: Back Problems Denies: Diabetes, Hepatitis, HIV, HTN, Seizures, Sexually Transmitted Disease Surgical History: No Surg Hx - [facility] Procedures DETOXIFICATION SERVICES FOR SUBSTANCE ABUSE TREATMENT (10/26/17) DRUG DETOXIFICATION (11/09/14) GROUP BAG SEALER FOR SUBSTANCE ABUSE TREATMENT, PSYCHOEDUCATION (10/26/17) GROUP PSYCHOTHERAPY (02/08/17) INDIV PSYCHOTHERAPY FOR SUBSTANCE ABUSE TREATMENT, SUPPORT (10/26/17) INDIVIDUAL PSYCHOTHERAPY, SUPPORTIVE (02/08/17) Family History: States: Unknown Family Hx, Stroke - Social History Hx Tobacco Use: Yes Hx Alcohol Use: No Hx Substance Use: Yes - Immunization History Hx Tetanus Toxoid Vaccination: No Hx Influenza Vaccination: No Hx Pneumococcal Vaccination: No Review Of Systems Psych: Positive for: Other (cocaine, heroin, marijuana detox ). Negative for: Suicidal ideation Physical Exam - Physical Exam Appears: Non-toxic, No Acute Distress Skin: Normal Color, Warm, Dry Head: Atraumatic, Normacephalic Eye(s): bilateral: Normal Inspection Oral Mucosa: Moist Neck: Supple Chest: Symmetrical, No Deformity, No Tenderness Cardiovascular: Rhythm Regular, No Murmur Respiratory: Normal Breath Sounds, No Rales, No Rhonchi, No Wheezing Extremity: Normal ROM, Capillary Refill (less than 2 seconds ) Neurological/Psych: Oriented x3, Normal Speech, Normal Cognition ED Course And Treatment - Laboratory Results Result Diagrams: 09/21/18 21:08 09/21/18 21:08 Lab Interpretation: No Acute Changes O2 Sat by Pulse Oximetry: 100 (on RA) Pulse Ox Interpretation: Normal Progress Note: Bloodwork and urinalysis ordered and reviewed. Reevaluation Time: 21:43 Reassessment Condition: Improved (Patient is medically cleared for detox admission.) Disposition - Disposition Disposition: HOSPITALIZED Disposition Time: 22:32 Condition: STABLE - POA Present On Arrival: None - Clinical Impression Clinical Impression: Opioid dependence, Depression - Scribe Statement The provider has reviewed the documentation as recorded by the Scribe (Khadijah Troy) Provider Attestation: All medical record entries made by the Scribe were at my direction and personally dictated by me. I have reviewed the chart and agree that the record accurately reflects my personal performance of the history, physical exam, medical decision making, and the department course for this patient. I have also personally directed, reviewed, and agree with the discharge instructions and disposition.
[2018-09-21 21:28] LABS: ALB/GLOB RATIO 1.7 (1.0-2.1); ALBUMIN 4.7 g/dL (3.5-5.0); ALT/SGPT 12 U/L (21-72); AST/SGOT 31 U/L (17-59); BLOOD UREA NITROGEN 13 mg/dL (9-20); CALCIUM 10.1 mg/dl (8.6-10.4); GFR NON-AFRICAN AMERICAN > 60
[2018-09-21 21:36] LABS: BARBITURATES, UR NEGATIVE (NEGATIVE); PHENCYCLIDINE, UR NEGATIVE (NEGATIVE)
[2018-09-21 21:37] LABS: BENZODIAZEPINES, UR POSITIVE (NEGATIVE); OPIATES, UR POSITIVE (NEGATIVE)
--- NOTE | 2018-09-21 22:54 | PCM.BM ---
<Charlie Adan - Last Filed: 09/21/18 22:53> Treatment Plan Problems - Problems identified on initial assessmt potential for opiate withdrawal Date Initiated: 09/21/18 Time Initiated: 22:53 Status: Active Treatment assets and liabiliti Patient Assests: cooperative, ADL independent, negotiates basic needs, cognitively intact Patient Liabilities: substance abuse - Milieu Protocol Maintain good personal hygiene: daily Encourage regular showers, daily Remind patient to perform daily oral care, daily Assist patient to perform ADL's Conduct patient checks and document Observation sheet: Q15 minutes Maintain personal safety: every shift Educate patient to report safety concerns to staff, every shift Monitor environment for contraband/sharps Medication safety: Monitor for expected outcome, potential side effects: every shift, Assess barriers to learning: every shift, Assess readiness for medication education: every shift <Dolores Peralta - Last Filed: 09/22/18 12:51> - Diagnosis (1) Opioid dependence with withdrawal Status: Acute Interventions: 09/22/18 12:51 * Assess 7x/week regarding severity of withdrawal * Educate regarding risks, benefits, side effects and alternatives of medications * Use Motivational Interviewing for abstinence * Use CBT for relapse prevention * Medication management for withdrawal symptoms * Encourage medication assisted treatment *
[2018-09-21] MEDS ORDERED: Aluminum Hydroxide/Magnesium Hydroxide Susp (30 mL) PO PRN (23:30)
[2018-09-22] MEDS: Multiple Vitamins Tab PO SCH (12:30)
--- NOTE | 2018-09-22 15:46 | PCM.PSYCH ---
Initial Psychiatric Evaluation - Initial Psychiatric Evaluation Type of Admission: Voluntary Legal Status: Capacity Chief Complaint (in patient's own words): Any treatment for my substance use. History of Present Illness and Precipitating Events: Patient is a 58 years old, , on disability, male with no previous psychiatric history was admitted due to withdrawing from heroin and Xanax. Opioid: Patient started using heroin at 17 years of age, increased gradually up to 10 bags daily. Patient has history of sobriety for 7 years from 1999 -2011, relapsed in 2011 after the murder of his brother. Snorting. Last used last night, 5 bags. Heroin is his drug of choice. He has history of 4 previous detox and one rehabilitation. Anxiolytics: He started using Xanax 3 years ago, was using 1 stick, each of 2 mg daily twice a day. Last use was 3 days ago. Cocaine: Started using cocaine at 17 years of age, was using less than a gram once a month. Last used yesterday. Patient was born in [place], has bachelor's degree. Not working since 2012. He is on disability, and has one 22 years old son. Patient lives alone. His height is 5 feet 9 inches and weight is 165 pounds. Current Medications: Active Medications Generic Name Dose Route Start Last Admin Trade Name Freq PRN Reason Stop Dose Admin Al Hydrox/Mg Hydrox/Simethicone 30 ml 09/21/18 23:30 Maalox 30 Ml PO TID PRN Indigestion / Heartburn Chlordiazepoxide 25 mg 09/22/18 12:16 Librium PO Q4H PRN Alcohol Withdrawal Clonidine HCl 0.1 mg 09/21/18 23:30 09/21/18 23:41 Catapres PO 0.1 mg Q4 PRN Administration COWS Score More or Equal to 5 Folic Acid 1 mg 09/22/18 12:30 09/22/18 12:30 Folic Acid PO 1 mg DAILY MONTY Administration Gabapentin 400 mg 09/22/18 14:00 09/22/18 13:48 Neurontin PO 400 mg TID MONTY Administration Hydroxyzine HCl 50 mg 09/21/18 23:31 09/21/18 23:39 Atarax PO 50 mg Q6H PRN Administration Anxiety Ibuprofen 600 mg 09/21/18 23:31 09/21/18 23:40 Motrin Tab PO 600 mg Q6H PRN Administration Pain, moderate (4-7) Loperamide HCl 2 mg 09/21/18 23:30 Imodium PO Q8 PRN Diarrhea Multivitamins 1 tab 09/22/18 12:30 09/22/18 12:30 Hexavitamin PO 1 tab DAILY MONTY Administration Ondansetron HCl 4 mg 09/21/18 23:30 Zofran Tab PO Q8 PRN Nausea/Vomiting Thiamine HCl 100 mg 09/22/18 12:30 09/22/18 12:30 Vitamin B1 Tab PO 100 mg DAILY MONTY Administration Trazodone HCl 100 mg 09/21/18 23:31 09/21/18 23:41 Desyrel PO 100 mg HS PRN Administration Insomnia Past Psychiatric History - Past Psychiatric History Previous Treatment History: Inpatient Prior Professional Help: History of 4 detox and one rehabilitation in the past. History of Abuse: None reported History of ETOH/Drug Use: See HPI History of Family Illness: None reported Pertinent Medical Hx (Current Medical&Sleep Prob, Allergies): Allergies Allergy/AdvReac Type Severity Reaction Status Date / Time FISH Allergy Intermediate Verified 09/21/18 20:45 nut - unspecified [nut] Allergy Intermediate Verified 09/21/18 20:45 No Known Home Med 10/26/17 Review of Systems - Psychiatric Psychiatric: As Per HPI, Anxiety Mental Status Examination - Personal Presentation Personal Presentation: Looks stated age - Affect Affect: Other (Appropriate) - Motor Activity Motor Activity: Calm - Reliability in Providing Information Reliability in Providing Information: Fair - Speech Speech: Organized - Mood Mood: Anxious - Formal Thought Process Formal Thought Process: No Impairment - Hallucinations/Delusions Hallucinations: Other (None reported) Delusions: Other - Obsessions/Compulsions Obsessions: None Compulsions: None - Cognitive Functions Orientation: Person, Place, Situation, Time Sensorium: Alert Attention/Concentration: Attentive Abstract Thinking: Howell Estimate of Intelligence: Average Judgement: Intact, as evidence by: Insight regarding need for hospitalization Memory: Recent intact, as evidence by: Ability to recall events of the day, Remote intact, as evidenced by: Ability to recall historical events - Risk Risk: Withdrawal, Diminished functioning - Strength & Assets Inventory Strength & Assets Inventory: Education, Cooperative - Limitations Limitations: Living alone DSM 5 DX - DSM 5 DSM 5 Diagnosis: 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 Supportive therapy. CBT for relapse prevention. [place] for abstinence. We'll start methadone for opiate withdrawal symptoms. We'll start other when necessary medications. Patient wants to go to inpatient rehabilitation for follow-up care after discharge from the hospital. Projected ELOS: 4-5 days - Smoking Cessation Smoking Cessation Initiated: Yes
[2018-09-23] MEDS: Multiple Vitamins Tab PO SCH (10:16)
--- NOTE | 2018-09-23 11:54 | PCM.PYCHPN ---
Psychiatric Progress Note - Psychiatric Progress Note Patient seen today, length of contact: 16 min Patient Chief Complaint: "I am not well" Problems Identified/Issues Discussed: The pt is seen, chart reviewed, case discussed with staff. The pt is compliant with medications and reports no side-effects. Symptoms are improving but needs more time to stabilize. Pt attends groups and activities. Support given, psycho-education provided. After care discussed. Medication Change: Yes (detox changes daily) Medical Record Reviewed: Yes Mental Status Examination - Cognitive Function Orientation: Person, Place, Situation, Time Memory: Intact Attention: WNL Concentration: Poor Association: WNL Fund of Knowledge: WNL - Mood Mood: Depressed, Anxious - Affect Affect: Constricted - Speech Speech: Appropriate - Formal Thought Process Formal Thought Process: No Impairment - Suicidal Ideation Suicidal Ideation: No - Homicidal Ideation Homicidal Ideation: No Goal/Treatment Plan - Goal/Treatment Plan Need for Continued Stay: Discharge may exacerbated symptoms, Severe functional impairment Progress Toward Problem(s) and Goals/Treatment Plan: Taper continues Gabapentin for augmentation As needed medications All risks, benefits and alternatives of the meds discussed, and the pt agreed and understood. Attend groups and activities Supportive therapy and psychoeducation [place] for abstinence CBT for relapse prevention Encourage MAT Refer to rehab or IOP, and self-help groups Teach healthy lifestyle methods, i.e. diet, exercise, meditation Smoking cessation with [place] Nicotine patch if needed 34 min
[2018-09-24] MEDS ORDERED: Magnesium Hydroxide Susp 30 ml UD PO ONE (07:32)
[2018-09-24] MEDS: Multiple Vitamins Tab PO SCH (09:27)
--- NOTE | 2018-09-24 13:20 | RAD ---
Date of service: 09/24/2018 HISTORY: rehab placement COMPARISON: 11/09/2014 TECHNIQUE: Chest PA and lateral FINDINGS: LUNGS: No active pulmonary disease. PLEURA: No significant pleural effusion identified. No pneumothorax apparent. CARDIOVASCULAR: No aortic atherosclerotic calcification present. Normal cardiac size. No pulmonary vascular congestion. OSSEOUS STRUCTURES: No significant abnormalities. VISUALIZED UPPER ABDOMEN: Normal. OTHER FINDINGS: None. IMPRESSION: No active disease.
--- NOTE | 2018-09-24 19:11 | PCM.PYCHPN ---
Psychiatric Progress Note - Psychiatric Progress Note Patient seen today, length of contact: 16 min Patient Chief Complaint: Any treatment for my substance use. Problems Identified/Issues Discussed: Patient seen, chart reviewed, case discussed with the staff. Issues related to illness and treatment were discussed with the patient and staff. Reported compliant with treatment with no adverse effects. Tolerating treatment very well. Reported feeling better, has very few withdrawal symptoms including body aches and sleeping difficulties. Otherwise feeling better. Awake, alert and confused Calm and cooperative with good eye contact. Mood reported as okay. Affect appropriate. Treatment discussed with the patient. Needs more time for stabilization. Aftercare discussed with the patient. Denied any delusions, auditory or visual hallucinations, suicidal ideations or homicidal ideations at the time of evaluation. Medical Problems: None reported Diagnostic Results: Reviewed DSM 5 Symptoms Update: Some improvement with treatment Medication Change: No Medical Record Reviewed: Yes Mental Status Examination - Cognitive Function Orientation: Person, Place, Situation, Time Memory: Intact Attention: WNL Concentration: WNL Association: WN Fund of Knowledge: [facility] Decription of patient's judgement and insights: Fair - Mood Mood: Anxious (Less than before) - Affect Affect: Other (Appropriate) - Speech Speech: Appropriate - Formal Thought Process Formal Thought Process: No Impairment Psychotic Thoughts and Behaviors: None - Suicidal Ideation Suicidal Ideation: No - Homicidal Ideation Homicidal Ideation: No Goal/Treatment Plan - Goal/Treatment Plan Need for Continued Stay: Remain at risks for inpatient hospitalization, Discharge may exacerbated symptoms, Severe functional impairment Progress Toward Problem(s) and Goals/Treatment Plan: Patient education. Supportive therapy. CBT for relapse prevention. [place] for abstinence. Continue treatment as before. Patient wants to go to inpatient rehabilitation for follow-up care after discharge from the hospital. Estimated Date of D/C: 09/26/18 - Smoking Cessation Smoking Cessation Initiated: Yes
[2018-09-25] MEDS: Multiple Vitamins Tab PO SCH (09:34)
--- NOTE | 2018-09-25 12:52 | PCM.PYCHPN ---
Psychiatric Progress Note - Psychiatric Progress Note Patient seen today, length of contact: 16 min Patient Chief Complaint: "I am not well" Problems Identified/Issues Discussed: The pt is seen, chart reviewed, case discussed with staff. The pt is compliant with medications and reports no side-effects. Symptoms are improving but needs more time to stabilize. Pt attends groups and activities. Support given, psycho-education provided. After care discussed. Medication Change: Yes (detox changes daily) Medical Record Reviewed: Yes Mental Status Examination - Cognitive Function Orientation: Person, Place, Situation, Time Memory: Intact Attention: WNL Concentration: Poor Association: WNL Fund of Knowledge: WNL - Mood Mood: Depressed, Anxious - Affect Affect: Constricted - Speech Speech: Appropriate - Formal Thought Process Formal Thought Process: No Impairment - Suicidal Ideation Suicidal Ideation: No - Homicidal Ideation Homicidal Ideation: No Goal/Treatment Plan - Goal/Treatment Plan Need for Continued Stay: Discharge may exacerbated symptoms, Severe functional impairment Progress Toward Problem(s) and Goals/Treatment Plan: Taper continues Gabapentin for augmentation As needed medications All risks, benefits and alternatives of the meds discussed, and the pt agreed and understood. Attend groups and activities Supportive therapy and psychoeducation [place] for abstinence CBT for relapse prevention Encourage MAT Refer to rehab or IOP, and self-help groups Teach healthy lifestyle methods, i.e. diet, exercise, meditation Smoking cessation with ND Nicotine patch if needed 34 min
[2018-09-25] MEDS ORDERED: Magnesium Hydroxide Susp 30 ml UD PO ONE (19:08)
--- NOTE | 2018-09-26 08:31 | PCM.PYCHDC ---
Mental Status Examination - Mental Status Examination Orientation: Person Discharge Summary - Discharge Note Consultations:: List each consultation separately and include: 1. Reason for request. 2. Findings. 3. Follow-up Summary of Hospital Course include:: 1. Description of specific treatment plan utilized for patients during their course of treatmen. 2. Summarize the time- course for resolution of acute symptoms and/or regressed behaviors. 3. Describe issues identified and worked on during hospitalization. 4. Describe medication utilized. 5. Describe medical problems identified and treated. 6. Reassessment of suicide risk Summary of Hospital Course: He went to [facility] rehab. - Diagnosis (1) Opioid dependence with withdrawal Current Visit: No Status: Acute - Final Diagnosis (DSM 5) Condition upon Discharge: STABLE Disposition: HOME/ ROUTINE Follow-up Treatment Plan: Taper continues Gabapentin for augmentation As needed medications All risks, benefits and alternatives of the meds discussed, and the pt agreed and understood. Attend groups and activities Supportive therapy and psychoeducation [place] for abstinence CBT for relapse prevention Encourage MAT Refer to rehab or IOP, and self-help groups Teach healthy lifestyle methods, i.e. diet, exercise, meditation Smoking cessation with RI Nicotine patch if needed 34 min Prescriptions/Medication Reconciliation: Gabapentin [Neurontin] 400 mg PO TID #90 cap hydrOXYzine HCl [Atarax] 50 mg PO DAILY PRN #30 tab PRN Reason: Anxiety traZODone [Desyrel] 100 mg PO HS PRN #30 tab PRN Reason: Insomnia
[2018-09-26] MEDS: Multiple Vitamins Tab PO SCH (09:12)
[2018-09-26 10:18] VITALS: BP 119/75; PULSE 92; RESP 20; TEMP 98.1; O2SAT 98
== END 2018-09-26 10:20 | disposition home or self-care (01) | DRG 895 ==
LOC: C.ER 20:37 → C.7D 22:33
PROVIDERS: ADMIT Psychiatry & Neurology Psychiatry; ATTEND Psychiatry & Neurology Psychiatry
PROC: HZ2ZZZZ Detoxification Services for Substance Abuse Treatment (ICD-10-PCS; principal; 2018-09-21)
PROC: HZ46ZZZ Group Counseling for Substance Abuse Treatment, Psychoeducation (ICD-10-PCS; 2018-09-21)
PROC: HZ80ZZZ Medication Management for Substance Abuse Treatment, Nicotine Replacement (ICD-10-PCS; 2018-09-21)
PROC: HZ59ZZZ Individual Psychotherapy for Substance Abuse Treatment, Supportive (ICD-10-PCS; 2018-09-21)
PROC: GZ3ZZZZ Medication Management (ICD-10-PCS; 2018-09-21)
DX: F11.23 Opioid dependence with withdrawal (principal); F14.20 Cocaine dependence, uncomplicated; F12.90 Cannabis use, unspecified, uncomplicated; F32.9 Major depressive disorder, single episode, unspecified; F17.210 Nicotine dependence, cigarettes, uncomplicated